=== PATIENT | male | born 1990 | race African-American/Black ===

== ENCOUNTER 2024-08-06 17:33 | Emergency (ER) | payer MEDICAID ==
[~2024-08-06] VITALS: Ht 177.8 cm; Wt 77.1 kg
[2024-08-06 18:07] VITALS: O2SAT 100
[2024-08-06 19:01] LABS: TROPONIN I HIGH SENSITIVITY 4 ng/L (3.0-53)
[2024-08-06] MEDS ORDERED: LIDO700A30 TP (19:11)
[2024-08-06] MEDS ORDERED: NAPR-677 MT (19:12)
[2024-08-06 19:25] VITALS: BP 115/60; PULSE 82; RESP 14; TEMP 36.8; O2SAT 100
== END 2024-08-06 19:25 | disposition home or self-care (01) ==
LOC: ER 17:33
DX: S29.8XXA Other specified injuries of thorax, initial encounter (principal); Z79.1 Long term (current) use of non-steroidal anti-inflammatories (NSAID); V43.62XA Car passenger injured in collision with other type car in traffic accident, initial encounter; Y93.89 Activity, other specified; Y92.410 Unspecified street and highway as the place of occurrence of the external cause; Y99.8 Other external cause status
CPT/HCPCS: 36415; 71046; 84484; 93005; 99285